=== PATIENT | female | born 2005 | race Caucasian/White ===

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

== ENCOUNTER 2024-12-26 16:48 | Emergency (ER) | payer BC, OTHER ==
[~2024-12-26] VITALS: Ht 160 cm; Wt 54.4 kg
[2024-12-26 17:06] VITALS: BP 138/87; TEMP 98; O2SAT 99
[2024-12-26] MEDS ORDERED: LIDOCAINE 2% 20 ML MDV ONE (17:31)
[2024-12-26] MEDS: LIDOCAINE /MPF 1% VIAL 5 ML VIAL IJ ONE (17:42)
[2024-12-26] MEDS ORDERED: ACETAMINOPHEN 325 MG TABLET ONE (18:22)
[2024-12-26] MEDS: ACETAMINOPHEN 325 MG TABLET PO ONE (18:23)
[2024-12-26] MEDS ORDERED: MUPI1OIN5 TP (19:14)
[2024-12-26] MEDS ORDERED: MUPIROCIN OINT 2% 22 GM TUBE TP ONE (19:30)
[2024-12-26] MEDS ORDERED: BACI/NEOM/POLY B OINT PKT 1 UDPKT PACKET TP ONE (19:30)
== END 2024-12-26 19:46 | disposition home or self-care (01) ==
LOC: ER 16:55
DX: S62.660A Nondisplaced fracture of distal phalanx of right index finger, initial encounter for closed fracture (principal); Z91.048 Other nonmedicinal substance allergy status; Z60.2 Problems related to living alone; W23.1XXA Caught, crushed, jammed, or pinched between stationary objects, initial encounter; Y93.89 Activity, other specified; Y92.89 Other specified places as the place of occurrence of the external cause; Y99.8 Other external cause status
CPT/HCPCS: 29130; 73140; 99283; A6403; J3490